=== PATIENT | male | born 1955 | race African-American/Black ===

== ENCOUNTER → 2017-01-19 | Outpatient (CLI) | payer OTHER ==
[~2017-01-19] MED LIST: METF100P4 MC
--- NOTE | 2017-01-19 13:59 | KCIC ---
PROCEDURE Bilateral lower extremity arterial duplex ultrasound with KARINA. HISTORY Peripheral artery disease with claudication. TECHNIQUE Grayscale, color flow, and spectral waveform analysis was performed. ABIs were calculated. COMPARISON None. FINDINGS On the right, waveforms become monophasic in the mid superficial femoral artery, biphasic proximal to this. There is blunted systolic upstroke in the monophasic waveform. On the left, runoff waveforms are monophasic, biphasic proximally. No turbulent flow or high-grade stenosis is apparent on grayscale imaging. Right common femoral artery peak systolic velocity is 174 cm/sec and profundus 132 cm/sec. Right superficial femoral artery peak systolic velocity proximally is 174 cm/sec and mid segment 104 centimeters/second. Distally, right superficial femoral artery peak systolic velocity is only 19 centimeters/second. Popliteal artery peak systolic velocity is 45 cm/sec. Diminished velocities are noted in the right runoff. On the left, common femoral artery peak systolic velocity is 208 cm/sec and profundus 224 centimeters/second. Peak systolic velocity in the mid and proximal superficial femoral artery is 112 cm/sec. In the distal left superficial femoral artery the peak systolic velocity is elevated at 205 cm/sec. Popliteal artery peak systolic velocity is 59 cm/sec. Right KARINA is calculated at 0.74 and the left 1.09. IMPRESSION - Monophasic waveforms and diminished velocities distally on the right suggests a more proximal stenosis, possibly in the superficial femoral artery proximally where the velocity is mildly elevated. - Elevated velocities on the left in the common femoral artery and superficial femoral artery distally suggesting moderate narrowing. - Right KARINA suggests moderate disease. Left KARINA is within normal limits. Electronically signed by: Satnam Thornton MD (Jan 19, 2017 13:57:53)
== END | disposition home or self-care (01) ==
LOC: KCIC US 10:39
PROVIDERS: ATTEND Podiatrist Foot & Ankle Surgery
DX: I73.9 Peripheral vascular disease, unspecified (principal)
CPT/HCPCS: 93922; 93925

== ENCOUNTER → 2018-04-26 | Outpatient (CLI) | payer OTHER | END | disposition home or self-care (01) | LOC: KCIC US 15:44 | DX: N28.1 Cyst of kidney, acquired (principal) | CPT/HCPCS: 76770 ==

== ENCOUNTER 2018-05-13 11:36 | Inpatient (IN) | payer OTHER ==
[2018-05-13] MEDS ORDERED: HYDROcodone/APAP 5/325MG 1 TAB TABLET PO (12:30)
[2018-05-13] MEDS: METOPROLOL SUCC 24HR ER 100 MG TAB.ER.24H. PO (12:49)
[2018-05-13] MEDS: MORPHINE SULFATE 2 MG/ML DISP.SYRIN. IM (13:16)
[2018-05-13 15:18] LABS: ADD MAN DIFF? NO
[2018-05-13 15:20] LABS: BASO # 0.1 x10^3/uL (0.0-0.2); BASO % 1 % (0-3); EOS # 0.2 x10^3/uL (0.0-0.7); EOS % 2 % (0-3); HEMATOCRIT 44.4 % (39.0-53.0); HEMOGLOBIN 15.1 g/dL (13.0-17.5); LYMPH # 1.4 x10^3/uL (1.0-4.8); LYMPH % 19 % (24-48); MEAN CORPUSCULAR HEMOGLOBIN 30 pg (25-35); MEAN CORPUSCULAR HGB CONC 34 g/dL (31-37); MEAN CORPUSCULAR VOLUME 86 fL (79-100); MONO # 0.5 x10^3/uL (0.0-1.1); MONO % 7 % (0-9); NEUT # 5.5 x10^3uL (1.8-7.7); NEUT % 71 % (31-73); PLATELET COUNT 188 x10^3/uL (140-400); RED BLOOD COUNT 5.13 x10^6/uL (4.30-5.70); RED CELL DISTRIBUTION WIDTH 14.9 % (11.5-14.5); WHITE BLOOD COUNT 7.7 x10^3/uL (4.0-11.0)
[2018-05-13] MEDS: cloNIDine HCL 0.1 MG TABLET PO (15:29)
[2018-05-13] MEDS: FUROSEMIDE 40 MG/4 ML VIAL. IVP (15:30)
[2018-05-13] MEDS: hydrALAZINE 20 MG/ML VIAL. IVP ×2 (15:30→16:08)
[2018-05-13] MEDS: TAMSULOSIN 0.4 MG CAP.ER.24H. PO (16:14)
[2018-05-13] MEDS: FINASTERIDE 5 MG TABLET. PO (16:16)
[2018-05-13 16:22] LABS: BILIRUBIN,URINE NEGATIVE (NEG); CLARITY,URINE CLEAR; COLOR,URINE YELLOW; GLUCOSE,URINE NEGATIVE (NEG); NITRITE,URINE NEGATIVE (NEG); PROTEIN,URINE 100 mg/dL (NEG-TRACE); UROBILINOGEN,URINE 0.2 mg/dL (0.2 mg/dL)
[2018-05-13 16:24] LABS: ANION GAP 11 (6-14); BLOOD UREA NITROGEN 19 mg/dL (8-26); CALCIUM 9.9 mg/dL (8.5-10.1); CARBON DIOXIDE 27 mmol/L (21-32); CHLORIDE 97 mmol/L (98-107); CREATININE 1.8 mg/dL (0.7-1.3); GFR 46.8; GLUCOSE 136 mg/dL (70-99); SODIUM 135 mmol/L (136-145)
[2018-05-13 16:26] LABS: ETHANOL < 10 mg/dL (0-10)
[2018-05-13 16:30] LABS: BARBITURATES NEG (NEG); BENZODIAZEPINES NEG (NEG); CANNABINOIDS NEG (NEG); COCAINE NEG (NEG); METHADONE NEG (NEG); OPIATES NEG (NEG); PHENCYCLIDINE NEG (NEG)
[2018-05-13 16:31] LABS: AMPHETAMINE/METHAMPHETAMINE NEG (NEG); ETHANOL, URINE NEG (NEG)
[2018-05-13 16:35] LABS: TROPONINI < 0.017 ng/mL (0.000-0.055)
[2018-05-13 16:42] LABS: BACTERIA,URINE 0 /HPF (0-FEW); SQUAMOUS EPITHELIAL CELL,UR FEW /LPF
[2018-05-13] MEDS ORDERED: ONDANSETRON PF 4 MG/2 ML VIAL. IV (17:15)
[2018-05-13] MEDS ORDERED: DEXTROSE 50% 25 GM / 50ML DISP.SYRIN. IV (17:30)
[2018-05-13] MEDS: INSULIN LISPRO 300 UNITS/3 ML INSULN.PEN. SQ (18:00)
[2018-05-13] MEDS: ACETAMINOPHEN 325 MG TABLET. PO (19:03)
[2018-05-13] MEDS: CIPROFLOXACIN 400MG PREMIX 200 ML IV (19:03)
[2018-05-13] MEDS ORDERED: LISINOPRIL 10 MG TABLET (20:04)
[2018-05-13] MEDS: LISINOPRIL 10 MG TABLET PO (20:19)
[2018-05-13] MEDS: INSULIN GLARGINE 300 UNITS/3 ML INSULN.PEN. SQ ×2 (21:30→22:00)
[2018-05-13] MEDS ORDERED: traZODone 100 MG TABLET. PO (21:30)
[2018-05-13] MEDS ORDERED: NITROGLYCERIN SUBLINGUAL 0.4 MG BOTTLE OF 25. SL (21:30)
[2018-05-13] MEDS ORDERED: traZODone 50 MG TABLET. PO (21:30)
[2018-05-13] MEDS: LACTOBACILLUS RHAMNOSUS GG 1 CAPSULE. PO (22:12)
[2018-05-13] MEDS: SERTRALINE 50 MG TABLET. PO (22:12)
[2018-05-13] MEDS: METOPROLOL TART IMMED RELEASE 50 MG TABLET. PO (22:12)
[2018-05-13] MEDS: glyBURIDE 5 MG TABLET PO (22:12)
[2018-05-13] MEDS: ASPIRIN 325 MG TABLET PO (22:12)
[2018-05-13] MEDS: CLOPIDOGREL BISULFATE 75 MG TABLET PO (22:13)
[2018-05-13] MEDS: FLUTICASONE 50MCG/NASAL SPRAY 16GM BOTTLE. NS (22:13)
[2018-05-13] MEDS: NON FORMULARY ITEM (Canagliflozin (Invokana) 100 MG) PO (22:13)
[2018-05-13 22:58] LABS: POC GLUCOSE 136 mg/dL (70-99)
[2018-05-13] MEDS: cefTRIAXone IV Push 1 GM VIAL. IVP (23:04)
[2018-05-14] MEDS: ACETAMINOPHEN 325 MG TABLET. PO (03:51)
[2018-05-14] MEDS: traMADol 50 MG TABLET PO (03:51)
[2018-05-14 04:18] LABS: ADD MAN DIFF? NO
[2018-05-14 04:29] LABS: BASO # 0.1 x10^3/uL (0.0-0.2); BASO % 1 % (0-3); EOS # 0.1 x10^3/uL (0.0-0.7); EOS % 2 % (0-3); HEMATOCRIT 39.4 % (39.0-53.0); HEMOGLOBIN 13.3 g/dL (13.0-17.5); LYMPH # 1.6 x10^3/uL (1.0-4.8); LYMPH % 24 % (24-48); MEAN CORPUSCULAR HEMOGLOBIN 29 pg (25-35); MEAN CORPUSCULAR HGB CONC 34 g/dL (31-37); MEAN CORPUSCULAR VOLUME 86 fL (79-100); MONO # 0.5 x10^3/uL (0.0-1.1); MONO % 8 % (0-9); NEUT # 4.2 x10^3uL (1.8-7.7); NEUT % 65 % (31-73); PLATELET COUNT 167 x10^3/uL (140-400); RED BLOOD COUNT 4.56 x10^6/uL (4.30-5.70); WHITE BLOOD COUNT 6.5 x10^3/uL (4.0-11.0)
[2018-05-14] MEDS: amLODIPine BESYLATE 10 MG TABLET PO (04:40)
[2018-05-14 04:49] LABS: ANION GAP 9 (6-14); BLOOD UREA NITROGEN 24 mg/dL (8-26); CALCIUM 9.3 mg/dL (8.5-10.1); CARBON DIOXIDE 29 mmol/L (21-32); CHLORIDE 99 mmol/L (98-107); GFR 41.4; GLUCOSE 126 mg/dL (70-99); POTASSIUM 3.3 mmol/L (3.5-5.1); SODIUM 137 mmol/L (136-145)
[2018-05-14] MEDS: MORPHINE SULFATE 4 MG/ML DISP.SYRIN. IV ×3 (05:59→16:05)
[2018-05-14] MEDS: INSULIN LISPRO 300 UNITS/3 ML INSULN.PEN. SQ ×3 (07:48→17:00)
[2018-05-14 07:50] LABS: POC GLUCOSE 98 mg/dL (70-99)
[2018-05-14] MEDS: ASPIRIN 325 MG TABLET PO (08:31)
[2018-05-14] MEDS: METOPROLOL TART IMMED RELEASE 50 MG TABLET. PO ×2 (08:32→20:44)
[2018-05-14] MEDS: LISINOPRIL 10 MG TABLET PO (08:33)
[2018-05-14] MEDS: CLOPIDOGREL BISULFATE 75 MG TABLET PO (08:33)
[2018-05-14] MEDS: FINASTERIDE 5 MG TABLET. PO (08:33)
[2018-05-14] MEDS: SERTRALINE 50 MG TABLET. PO (08:33)
[2018-05-14] MEDS: TERBINAFINE 250 MG TABLET. PO (08:33)
[2018-05-14] MEDS: LACTOBACILLUS RHAMNOSUS GG 1 CAPSULE. PO ×2 (08:33→20:44)
[2018-05-14] MEDS: PANTOPRAZOLE 40 MG TABLET.DR. PO (08:33)
[2018-05-14] MEDS: FLUTICASONE 50MCG/NASAL SPRAY 16GM BOTTLE. NS (08:34)
[2018-05-14] MEDS: TAMSULOSIN 0.4 MG CAP.ER.24H. PO (08:34)
[2018-05-14] MEDS: FUROSEMIDE 40 MG TABLET. PO (08:34)
[2018-05-14] MEDS: glyBURIDE 5 MG TABLET PO ×2 (08:34→17:02)
[2018-05-14] MEDS: NON FORMULARY ITEM (Canagliflozin (Invokana) 100 MG) PO (08:34)
[2018-05-14] MEDS ORDERED: LISINOPRIL 10 MG TABLET PO (09:00)
[2018-05-14] MEDS: INSULIN GLARGINE 300 UNITS/3 ML INSULN.PEN. SQ (09:00)
[2018-05-14] MEDS ORDERED: FINASTERIDE 5 MG TABLET. PO (09:00)
[2018-05-14] MEDS ORDERED: ONDANSETRON ODT 4 MG TAB.RAPDIS. PO (09:15)
[2018-05-14] MEDS ORDERED: DEXTROSE 50% 25 GM / 50ML DISP.SYRIN. IV (09:15)
[2018-05-14] MEDS ORDERED: ONDANSETRON PF 4 MG/2 ML VIAL. IV (09:15)
[2018-05-14] MEDS: CIPROFLOXACIN 400MG PREMIX 200 ML IV ×2 (09:52→20:43)
[2018-05-14] MEDS: oxyCODONE/APAP 5/325 1 TAB TABLET PO ×3 (12:02→21:07)
[2018-05-14 12:07] LABS: POC GLUCOSE 162 mg/dL (70-99)
[2018-05-14 16:07] LABS: POC GLUCOSE 125 mg/dL (70-99)
[2018-05-14] MEDS: cefTRIAXone IV Push 1 GM VIAL. IVP (20:43)
[2018-05-14 20:58] LABS: POC GLUCOSE 135 mg/dL (70-99)
[2018-05-14] MEDS ORDERED: INSULIN GLARGINE 300 UNITS/3 ML INSULN.PEN. SQ (21:00)
[2018-05-14] MEDS: hydrALAZINE 20 MG/ML VIAL. IVP (22:23)
[2018-05-15] MEDS: oxyCODONE/APAP 5/325 1 TAB TABLET PO (01:06)
[2018-05-15] MEDS: hydrALAZINE 20 MG/ML VIAL. IVP (03:07)
[2018-05-15] MEDS: NON FORMULARY ITEM (Canagliflozin (Invokana) 100 MG) PO (06:03)
[2018-05-15] MEDS: FINASTERIDE 5 MG TABLET. PO (06:05)
[2018-05-15] MEDS: LACTOBACILLUS RHAMNOSUS GG 1 CAPSULE. PO (06:05)
[2018-05-15] MEDS: SERTRALINE 50 MG TABLET. PO (06:05)
[2018-05-15] MEDS: LISINOPRIL 10 MG TABLET PO (06:05)
[2018-05-15] MEDS: TAMSULOSIN 0.4 MG CAP.ER.24H. PO (06:06)
[2018-05-15] MEDS: amLODIPine BESYLATE 10 MG TABLET PO (06:06)
[2018-05-15] MEDS: TERBINAFINE 250 MG TABLET. PO (06:06)
[2018-05-15] MEDS: ASPIRIN 325 MG TABLET PO (06:06)
[2018-05-15] MEDS: CLOPIDOGREL BISULFATE 75 MG TABLET PO (06:06)
[2018-05-15] MEDS: METOPROLOL TART IMMED RELEASE 50 MG TABLET. PO (06:21)
[2018-05-15 06:30] LABS: POC GLUCOSE 110 mg/dL (70-99)
[2018-05-15 07:52] LABS: POC GLUCOSE 123 mg/dL (70-99)
[2018-05-15] MEDS: INSULIN LISPRO 300 UNITS/3 ML INSULN.PEN. SQ (08:00)
[2018-05-15] MEDS: PANTOPRAZOLE 40 MG TABLET.DR. PO (08:22)
[2018-05-15] MEDS: FUROSEMIDE 40 MG TABLET. PO (08:22)
[2018-05-15] MEDS: glyBURIDE 5 MG TABLET PO (08:23)
[2018-05-15] MEDS: FLUTICASONE 50MCG/NASAL SPRAY 16GM BOTTLE. NS (08:23)
[2018-05-15] MEDS: CIPROFLOXACIN 400MG PREMIX 200 ML IV (08:24)
[2018-05-15] MEDS: INSULIN GLARGINE 300 UNITS/3 ML INSULN.PEN. SQ (08:35)
[2018-05-15 11:29] LABS: POC GLUCOSE 174 mg/dL (70-99)
[2018-05-15 11:56] LABS: ALBUMIN 3.5 g/dL (3.4-5.0); ANION GAP 11 (6-14); BLOOD UREA NITROGEN 24 mg/dL (8-26); CALCIUM 8.9 mg/dL (8.5-10.1); CARBON DIOXIDE 26 mmol/L (21-32); CHLORIDE 100 mmol/L (98-107); GFR 41.4; GLUCOSE 170 mg/dL (70-99); PHOSPHORUS 2.8 mg/dL (2.6-4.7); POTASSIUM 3.6 mmol/L (3.5-5.1); SODIUM 137 mmol/L (136-145)
== END 2018-05-15 12:33 | disposition home or self-care (01) | DRG 153 ==
LOC: ER 11:36 → 1 WEST ICU 17:00 → 5 SOUTH 20:33
DX: H66.92 Otitis media, unspecified, left ear (principal); N17.9 Acute kidney failure, unspecified; E87.6 Hypokalemia; N18.9 Chronic kidney disease, unspecified; I12.9 Hypertensive chronic kidney disease with stage 1 through stage 4 chronic kidney disease, or unspecified chronic kidney disease; E78.00 Pure hypercholesterolemia, unspecified; E11.22 Type 2 diabetes mellitus with diabetic chronic kidney disease; Z83.3 Family history of diabetes mellitus; Z82.49 Family history of ischemic heart disease and other diseases of the circulatory system; Z95.5 Presence of coronary angioplasty implant and graft; E78.5 Hyperlipidemia, unspecified; E66.9 Obesity, unspecified; Z68.33 Body mass index [BMI] 33.0-33.9, adult; I25.10 Atherosclerotic heart disease of native coronary artery without angina pectoris; I10 Essential (primary) hypertension
CPT/HCPCS: 36415; 70450; 80048; 80069; 80307; 81001; 82962; 84484; 85025; 93005; 93306; 96365; 96366; 96368; 96372; 96375; 99285; 99285-25; G0480; J0360; J0696; J0744; J1815; J1940; J2270; J7050